=== PATIENT | male | born 1960 | race Caucasian/White ===

== ENCOUNTER 2023-05-07 09:15 | Emergency (ER) | payer SELFPAY ==
[~2023-05-07] VITALS: Ht 177.8 cm; Wt 104.8 kg
[2023-05-07 11:09] LABS: CALCIUM, SERUM 8.9 mg/dL (8.5-10.1); CREATININE 1.2 mg/dL (0.6-1.3)
[2023-05-07 11:13] LABS: ALBUMIN 3.2 g/dL (3.4-5.0); BILIRUBIN,DIRECT 0.2 mg/dL (0.0-0.2); BILIRUBIN,TOTAL 0.7 mg/dL (0.2-1.0); TOTAL PROTEIN, SERUM 6.8 g/dL (6.4-8.2)
[2023-05-07 11:14] LABS: BASOPHILS # (AUTO) 0.1 K/uL (0.0-0.2); BASOPHILS % (AUTO) 0.7 % (0.0-2.0); EOSINOPHILS # (AUTO) 0.3 K/uL (0.0-0.7); EOSINOPHILS % (AUTO) 3.6 % (0.0-6.0); HEMATOCRIT 44 % (39-51); HEMOGLOBIN 14.6 g/dL (13.5-17.5); LYMPHOCYTES # (AUTO) 1.8 K/uL (0.8-4.8); MEAN CORPUSCULAR HEMOGLOBIN 28 PG (26.0-33.0); MEAN CORPUSCULAR HGB CONC 33 g/dl (31.0-36.0); MEAN CORPUSCULAR VOLUME 84 fL (80-96); MONOCYTES # (AUTO) 0.4 K/uL (0.1-1.30); MONOCYTES % (AUTO) 5.4 % (2.0-12.0); NEUTROPHILS % (AUTO) 66.3 % (43.0-81.0); PLATELET COUNT (AUTO) 160 K/uL (150-450); RED BLOOD CELL COUNT(AUTO) 5.26 MIL/uL (4.5-6.0); RED CELL DISTRIBUTION WIDTH 17.6 % (11.5-15.0); WHITE BLOOD COUNT (AUTO) 7.5 K/uL (4.3-11.0)
[2023-05-07] MEDS ORDERED: CLIN300C12 PO (12:23)
[2023-05-07] MEDS ORDERED: CLINDAMYCIN HCL 150 MG CAPSULE PO ONE (12:30)
[2023-05-07] MEDS ORDERED: CLINDAMYCIN HCL 150 MG CAPSULE ONE (12:32)
[2023-05-07 13:27] VITALS: BP 134/71; TEMP 98.5; O2SAT 99
== END 2023-05-07 13:28 | disposition home or self-care (01) ==
LOC: ER 09:21 → EDBD 09:21 → ER 13:28
DX: M79.672 Pain in left foot (principal); I10 Essential (primary) hypertension; E11.9 Type 2 diabetes mellitus without complications
CPT/HCPCS: 36415; 73630-TC; 80048-TC; 80076-TC; 85025-TC; 85652-TC; 86140-TC